=== PATIENT | female | born 1975 | race Caucasian/White ===

== ENCOUNTER 2016-08-11 13:14 | Emergency (ER) | payer OTHER ==
--- NOTE | ~2016-08-11 | CT114 ---
[facility] A Service of [facility] RADIOLOGY TEXT RESULTS PATIENT: JULIAN CARO LOCATION: SED : 73 UNIT #: [id number] AGE: [address]: Alanna Lewis APRN SEX: F ORDER DR: [id number] [address] [address] [id number] E MR#: [id number] Acc #: [id number] NAME: JULIAN CARO : 1975 SEX: F STUDY DATE/TIME: 08/11/2016 13:35 UNIT: SED ROOM: STUDY DESCRIPTION: CT Soft Tissue Neck W Cont Attending Physician: Alanna Lewis A.P.R.N. Ordering Physician: Alanna Lewis A.P.R.N. Primary Care Physician: Angelic Burgos M.D. MEDICAL IMAGING REPORT This report is preliminary unless electronic signature is present. EXAM CT scan of the neck with contrast. DATE OF EXAM 08/11/2016 INDICATION Knot on the back of neck for 2 days. It is warm to the touch. TECHNIQUE The patient was given 70 mL of Isovue-370 and axial 3 mm images were obtained through the neck with contrast. NOTE: This CT exam was performed with one or more of the following radiation dose reduction techniques: automatic exposure control, adjustment of mA and/or kV according to patient size, and iterative reconstruction. FINDINGS The parotid glands and submandibular glands are normal in appearance. The thyroid gland is normal. There is no adenopathy. In the right posterior neck, there is a small lymph node in the subcutaneous fat, which is about 5 mm in diameter. There is a large zone of increased density in the fat with mild skin thickening overlying it. IMPRESSION There is roughly a 3 to 3.5 cm zone of slight increased density and subcutaneous fat in the posterior neck slightly to the right of the midline. There is a small 5 mm node within this area, and is likely reactive. The findings suggest cellulitis. There seems to be mild overlying skin thickening; otherwise, the study is normal. [facility] A Service [facility] RADIOLOGY TEXT RESULTS PATIENT: JULIAN CAR[id number] [birth year] UNIT #: [id number] AGE: [address]: Alanna Lewis APRN SEX: F ORDER DR: Dictated by... Aron Mccabe M.D. THIS IS AN ELECTRONICALLY VERIFIED REPORT Aron Mccabe M.D. at 08/14/2016 12:49 PM CRISTOFER/clinton TD: 08/11/2016 18:43 JOB #: [id number] MEDICAL IMAGING REPORT
[~2016-08-11 13:14] MED LIST: BENZONATATE; FLEXERIL; HCTZ PO; HYCODAN PO; IBUPROFEN600 MG PO; LIPITOR; LORTAB 7.5-5001 TAB PO; MEDROL PO; NO MEDICATIONS; VICODIN 5/1 TAB 5/50 PO; VICODIN ES 7.51 EAC1; ZANTAC PO; ZITHROMAX PO
[2016-08-11 13:16] LABS: BASOPHIL# 0.1 X10e3 (0-0.3); BASOPHIL% 0.8 % (0-2.5); EOSINOPHIL# 0.3 X10e3 (0-0.7); HEMATOCRIT 42.7 % (35.0-45.0); HEMOGLOBIN 14.4 gm/dL (12.0-16.0); LYMPHOCYTE# 1.6 X10e3 (1.0-3.5); LYMPHOCYTE% 16.8 % (17.0-45.0); MEAN CELL VOLUME 87.9 FL (83-96); MEAN CORPUSCULAR HEMOGLOBIN 29.7 PG (28-34); MEAN CORPUSCULAR HGB CONC 33.8 g/dL (30-36); MEAN PLATELET VOLUME 6.7 FL (6.5-11.5); MONOCYTE# 0.6 X10e3 (0-1.0); MONOCYTE% 6.4 % (3.0-12.0); PLATELET COUNT 273 X10e3 (140-420); RED BLOOD COUNT 4.86 X10e (3.90-5.30); RED CELL DISTRIBUTION WIDTH 13.1 % (11.0-15.5); WHITE BLOOD COUNT 9.6 X10e3 (4.0-10.5)
[2016-08-11 13:18] LABS: DIFF IND NO
[2016-08-11 13:37] LABS: BLOOD UREA NITROGEN 9 mg/dL (9-23); CALCIUM SERUM 8.9 mg/dL (8.4-10.2); CARBON DIOXIDE 26 mmol/L (22-31); CHLORIDE 103 mmol/L (100-111); CREATININE SERUM 0.5 mg/dL (0.6-1.4); GLOM FILT RATE Estimated ABOVE60 mL/min (>60); GLUCOSE FASTING 105 mg/dL (70-110); POTASSIUM 4.2 mmol/L (3.5-5.1); SODIUM 136 mmol/L (135-145)
[2016-09-12] MEDS ORDERED: NO MEDICATIONS (12:25)
== END 2016-08-11 14:28 | disposition home or self-care (01) ==
LOC: SED 13:14
PROVIDERS: Nurse Practitioner
DX: L03.221 Cellulitis of neck (principal); Z88.0 Allergy status to penicillin
CPT/HCPCS: 70491; 80048; 85025; 96361; 96374; 99284; J1885; Q9967

== ENCOUNTER 2016-09-12 12:53 | Emergency (ER) | payer OTHER ==
--- NOTE | ~2016-09-12 | CR63 ---
[facility] A Service of [facility] & [facility] RADIOLOGY TEXT RESULTS PATIENT: JULIAN CARO LOCATION: SED : 73 UNIT #: [id number] AGE: [address]: Erika Nina APRN SEX: F ORDER DR: [id number] [address] [address] [id number] E MR#: [id number] Acc #: [id number] NAME: JULIAN CARO : 1975 SEX: F STUDY DATE/TIME: 09/12/2016 12:47 UNIT: SED ROOM: STUDY DESCRIPTION: CR Chest 2 View Attending Physician: Erika Nina A.P.R.N. Ordering Physician: Erika Munguia A.P.R.N. Primary Care Physician: Angelic Burgos M.D. MEDICAL IMAGING REPORT This report is preliminary unless electronic signature is present. EXAM Chest PA and lateral 09/12/2016 COMPARISON 02/11/2014 HISTORY Cough and wheezing for 5 days, PA and lateral views are obtained. The cardiovascular configuration is normal and the lungs are clear. CONCLUSION Normal chest. Dictated by... Ulysses Zaidi M.D. THIS IS AN ELECTRONICALLY VERIFIED REPORT Ulysses Zaidi M.D. at 09/14/2016 2:19 PM NATASHA/enid TD: 09/12/2016 18:25 JOB #: [id number] MEDICAL IMAGING REPORT Page 1 of 1
== END 2016-09-12 14:15 | disposition home or self-care (01) ==
LOC: SED 12:53
DX: B34.9 Viral infection, unspecified (principal); I10 Essential (primary) hypertension; F17.210 Nicotine dependence, cigarettes, uncomplicated; Z88.0 Allergy status to penicillin
CPT/HCPCS: 71020; 94640; 99283